=== PATIENT | male | born 1970 ===

== ENCOUNTER → 2022-08-31 13:42 | Outpatient (BNVA) | payer BC, SELFPAY | PROVIDERS: PCP Internal Medicine; Visit Provider Student in an Organized Health Care Education/Training Program ==

== ENCOUNTER 2023-03-19 15:36 | Outpatient (AMB) | payer BC, OTHER, SELFPAY ==
--- NOTE | 2023-03-19 15:38 | MHC.OFFVIS ---
Intake Vital Signs 03/19/23 15:39 Height 5 ft 6 in Weight 237 lb 14.06 oz BMI 38.4 BP 126/78 Blood Pressure Location Lt brachial Position Sitting Pulse 83 Pulse Source Pulse Oximeter Temp 97.7 F Temp Source Skin Pulse Oximetry (%) 98 Oxygen Delivery Method Room Air Intake Visit Reasons: hand OA Intake Note: Pt last seen 08/31/22, presents today for follow up. Has not yet scheduled OT. 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 Language: Lath Tier Name: Sigificant other Information Interpreted: clinical only Accompanied by: Significant Other Allergies No Known Allergies Allergy (Verified 03/19/23 15:44) Medication List - Last Reconciled 03/19/23 by Charlene Jones MD acetaminophen (Tylenol) 650 mg PO Q6H PRN cyclosporine 0.05% (Restasis) 1 drp ophthalmic (eye) Q12H diclofenac sodium 1% (Arthritis Pain (diclofenac)) 2 grams topical QID pravastatin 40 mg PO DAILY tamsulosin 0.4 mg PO DAILY vitamin B complex-folic acid 50 mcg 1 tab PO DAILY HPI HPI Comments History of Present Illness Details 53-year-old male with bilateral hand osteoarthritis returns for follow-up. He is accompanied by his significant other. He went to occupational therapy for about 5 sessions.. Does not feel that it provided much relief. He continues to have pain in his PIP is and DIPs of his right hand. He takes Tylenol only when absolutely needed. Initial history: This is a 52-year-old male who presents for evaluation of bilateral hand pain. The condition started about 5 years ago he was evaluated by a pcat instructor and was told he has bilateral hand osteoarthritis. He started applying Voltaren gel which did not help much. He would applied every 4-6 hours. He is having pain in his PIP is in the DIPs. Pain is generally worse with activity. 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 He has morning stiffness of his hands lasting about 30 minutes. He takes ibuprofen 400 mg every few days which provided some relief. 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 Review of Systems [facility] [place] Reports arthralgias and Reports stiffness Physical Exam Vital Signs: Last Vital Signs Temp 97.7 F 03/19/23 15:39 Pulse 83 03/19/23 15:39 BP 126/78 03/19/23 15:39 Pulse Ox 98 03/19/23 15:39 Oxygen Delivery Method Room Air 03/19/23 15:39 BMI result Body Mass Index 38.4 Const General: cooperative and healthy appearing Nutritional Appearance: obese morbidly obese Orientation/consciousness: patient oriented x3 Limitations: no limitations HEENT Head: Yes normocephalic and Yes atraumatic Mouth: moist mucous membranes Resp Effort & Inspection: normal respiratory effort and able to speak in complete sentences Neuro General: patient oriented x3 Extrem Other: Bilateral osteoarthritic changes of both hands with Heberden's and Logan's nodes tender to palpation on the right no wrist swelling or tenderness or pain with flexion & extension Normal range of motion of both elbows and shoulders with no pain. Normal nailfold capillaroscopy Assessment & Plan Assessment & Plan (1) Osteoarthritis of hands, bilateral: Code(s): M19.041 - Primary osteoarthritis, right hand; M19.042 - Primary osteoarthritis, left hand Qualifiers: Osteoarthritis type: primary Qualified Code(s): M19.041 - Primary osteoarthritis, right hand; M19.042 - Primary osteoarthritis, left hand Plan: This is a 53-year-old male with bilateral hand osteoarthritis who presents for follow-up. He went to occupational therapy for both hands and does not report any improvement. Currently he takes Tylenol only as needed for pain. I discussed potentially buying a paraffin wax machine to use as needed. We also discussed hand surgery evaluation. Patient states that he she sees a hand surgeon herself and she will discuss with his PCP a potential referral to the same surgeon Follow-up with me as needed Plan I spent 16 minutes reviewing patient's chart, evaluating patient, counseling patient and documenting in the chart Coding Level of Care Code Est Pt Level 3 (33985) Diagnoses Primary osteoarthritis of both hands M19.041; M19.042 Osteoarthritis type: primary
[2023-03-19 15:39] VITALS: BP 126/78; PULSE 83; TEMP 36.5; O2SAT 98; BMI 38.4
== END 2023-03-19 16:02 | disposition home or self-care (01) ==
PROVIDERS: PCP Internal Medicine; Visit Provider Student in an Organized Health Care Education/Training Program
DX: M19.041 Primary osteoarthritis, right hand (principal); M19.042 Primary osteoarthritis, left hand
CPT/HCPCS: 99213

== ENCOUNTER → 2023-03-19 15:36 | Outpatient (BNVA) | payer BC, SELFPAY | PROVIDERS: PCP Internal Medicine; Visit Provider Student in an Organized Health Care Education/Training Program | DX: M19.041 Primary osteoarthritis, right hand (principal); M19.042 Primary osteoarthritis, left hand | CPT/HCPCS: 99212 ==